=== PATIENT | male | born 1960 ===

== ENCOUNTER 2021-04-22 13:46 | Emergency (ER) | payer SELFPAY ==
[2021-04-22] MEDS ORDERED: Albuterol 8 GM Inhaler INH STA (14:12)
--- NOTE | 2021-04-22 14:15 | EDM.PDOC ---
ED HPI GENERAL MEDICAL PROBLEM - General Chief Complaint: Respiratory Problem Stated Complaint: COVID POS Time Seen by Provider: 04/22/21 13:54 - History of Present Illness INITIAL COMMENTS - FREE TEXT/NARRATIVE: History of present illness: [] This gentleman was diagnosed with COVID-19 on a test done here 04/16/2021. The next week they called him from the infusion center and said he was not eligible for monoclonal antibodies because of the time since onset of symptoms. He has had symptoms more than 10 days now. Patient feels short of breath. He is hypoxic at home. His oxygen saturation on room air here is 84%. He does not have lung disease COPD immune compromise or heart condition. The patient is not terribly distant and prefers that he be treated at home. He does feel like when he takes a deep breath it makes it very difficult to breathe and causes reflex coughing. Review of systems: As per history of present illness and below otherwise all systems reviewed and negative. Past medical history: As per history of present illness and as reviewed below otherwise noncontributory. Surgical history: As per history of present illness and as reviewed below otherwise noncontributory. Social history: No reported history of drug or alcohol abuse. Family history: As per history of present illness and as reviewed below otherwise noncontributory. Physical exam: Constitutional - well developed, well-nourished and in no acute distress HEENT - normocephalic, no evidence of trauma - external nose and mouth normal - no mass in neck and no JVD - mucosae moist EYES - full EOM, PERRL, no icterus - no evidence of inflammation, injection, or drainage Respiratory - no respiratory distress, equal bilateral expansion, lungs with scattered rales throughout but no wheezing no significant respiratory distress. Cardiovascular - Regular Rhythm with S1 and S2 appreciated and no murmur, gallop or rub. GI - abdomen soft without distension or organomegaly - normal bowel sounds - no guard or rebound Musculoskeletal no gross deformity of long bones or joints - no tenderness, swelling or edema Neurologic - Alert and oriented times four - CN II-XII grossly intact - motor sensory and coordination symmetrically normal Psychiatric - appropriate mood and affect with normal thought content Hematologic - No petechiae or purpura - mucosa appropriate color and sclera not pale - normal nail bed color and refill Integument - no rash or evidence of trauma - normal turgor Diagnostics: [] Therapeutics: [] Impression: [] Plan: [] Definitive disposition and diagnosis as appropriate pending reevaluation and review of above. - Related Data Allergies Allergy/AdvReac Type Severity Reaction Status Date / Time No Known Allergies Allergy Verified 04/22/21 13:54 Home Meds: Home Meds . [No Known Home Meds] 04/22/21 [History] Past Medical History HEENT History: Reports: Impaired Vision - Past Surgical History GI Surgical History: Reports: Appendectomy Social & Family History - Family History Family Medical History: No Pertinent Family History - Tobacco Use Tobacco Use Status *Q: Never Tobacco User - Caffeine Use Caffeine Use: Reports: Coffee - Recreational Drug Use Recreational Drug Use: No ED ROS GENERAL - Review of Systems Review Of Systems: Comprehensive ROS is negative, except as noted in HPI. ED EXAM, GENERAL - Physical Exam Exam: See Below Free Text/Narrative:: My physical exam is in the HPI Course - Vital Signs Last Recorded V/S: Last Vital Signs Temp 36.9 C 04/22/21 16:10 Pulse 113 H 04/22/21 16:10 Resp 18 04/22/21 16:10 BP 119/78 04/22/21 16:10 Pulse Ox 91 L 04/22/21 16:10 - Orders/Labs/Meds Meds: Medications Discontinued Medications Generic Name Dose Route Start Last Admin Trade Name Gregoryq PRN Reason Stop Dose Admin Albuterol 8 gm 04/22/21 14:12 04/22/21 14:29 Albuterol 8 Gm Inhaler INH 04/22/21 14:13 8 gm STAT STA Administration - Re-Assessments/Exams Free Text/Narrative Re-Assessment/Exam: 04/22/21 14:38 Patient feels better and will set up home O2. Discharged in satisfactory condition once that is arranged. Departure - Departure Time of Disposition: 16:30 Disposition: Home, Self-Care 01 Condition: Good Clinical Impression: Pneumonia due to COVID-19 virus, Hypoxia - Discharge Information Instructions: COVID-19 Vaccine Information, Hypoxemia, COVID-19: Quarantine vs. Isolation - [facility] (04/10/2020), Emergency Use Authorization (EUA) of the [employer] COVID-19 Vaccine: Fact Sheet for Recipients and Caregivers - FDA (10/30/2020), COVID-19: What to Do If You Are Sick- [facility] (07/09/2020) Referrals: PCP,None [Ordering Only Provider] - Forms: ED Department Discharge Additional Instructions: Return if your oxygen is low despite home oxygen. [facility] - [facility] [address] [place] [address] [facility] [address] [place] [id number] The following information is given to patients seen in the emergency department who are being discharged to home. This information is to outline your options for follow-up care. We provide all patients seen in our emergency department with a follow-up referral. The need for follow-up, as well as the timing and circumstances, are variable depending upon the specifics of your emergency department visit. If you don't have a primary care physician on staff, we will provide you with a referral. We always advise you to contact your personal physician following an emergency department visit to inform them of the circumstance of the visit and for follow-up with them and/or the need for any referrals to a consulting specialist. The emergency department will also refer you to a specialist when appropriate. This referral assures that you have the opportunity for follow-up care with a specialist. All of these measure are taken in an effort to provide you with optimal care, which includes your follow-up. Under all circumstances we always encourage you to contact your private physician who remains a resource for coordinating your care. When calling for follow-up care, please make the office aware that this follow-up is from your recent emergency room visit. If for any reason you are refused follow-up, please contact the [facility] Emergency Department at and asked to speak to the emergency department charge nurse.
== END 2021-04-22 16:30 | disposition home or self-care (01) ==
LOC: MW.ED 13:46
DX: U07.1 COVID-19 (principal); J12.82 Pneumonia due to coronavirus disease 2019
CPT/HCPCS: 99284; A9270